=== PATIENT | female | born 1960 | race Caucasian/White ===

== ENCOUNTER 2022-08-28 11:30 | Outpatient (RCR) | payer OTHER, SELFPAY ==
[2022-07-03 16:32] LABS: Hemoglobin* 6.9 gm/dL (12.0-16.0)
[2022-07-04 11:45] VITALS: BP 135/82; PULSE 91; RESP 16; TEMP 36.4; O2SAT 98
[2022-07-04 12:27] VITALS: BP 135/82; PULSE 91; RESP 16; TEMP 36.4; O2SAT 98
[2022-07-04 12:44] VITALS: BP 128/87; PULSE 76; RESP 16; TEMP 36.8; O2SAT 100
[2022-07-04 13:29] VITALS: BP 132/81; PULSE 78; RESP 16; TEMP 37.1; O2SAT 100
[2022-07-04 14:29] VITALS: BP 132/76; PULSE 72; RESP 16; TEMP 37.2; O2SAT 99
[2022-07-17 16:46] LABS: Basophils Percent Auto 2.9 % (0.0-3.0); Hematocrit 22.6 % (33.0-51.0); Immature Granulocytes Pct Auto 3.4 %; Mean Corpuscular HGB Conc 30 gm/dL (32-36); Mean Corpuscular Hemoglobin 25 pg (26-34); Mean Corpuscular Volume 82 fL (80-100); Monocytes Percent Auto 9.1 % (0.0-11.0); Neutrophils Percent Auto 4.6 % (42.0-72.0); Platelet Count* 283 K/uL (140-440); RDW Coefficient of Variation % 28.6 % (11.5-15.5); Red Blood Count 2.77 m/uL (4.00-5.20)
[2022-07-17 17:00] LABS: Hemoglobin* 6.8 gm/dL (12.0-16.0); Slide Review Reflex No; White Blood Count* 1.75 K/uL (4.50-11.00)
[2022-07-18] VITALS (7 sets, daily range): BP systolic 109–137; BP diastolic 70–79; PULSE 61–71; RESP 16–20; TEMP 36.2–37.1; O2SAT 94–97
[2022-07-25] VITALS (7 sets, daily range): BP systolic 113–129; BP diastolic 64–89; PULSE 75–88; RESP 16–18; TEMP 36.5–36.9; O2SAT 99–100
[2022-07-25] MEDS: 0.9 % SODIUM CHLORIDE 250 ml IV (11:16)
--- NOTE | 2022-07-29 15:59 | ONC.NURNOTE ---
Addendum entered by Bebe Mariee RN 07/29/22 16:17: Pt having transfusion 08/07 instead of usual Fridays d/t [place]. Original Note: Following appts made in collaboration with [facility] and patient's schedule: 07/31 Labs ~1045 at [facility] and then T&C at [facility] 08/01 1000 [facility] for likely transfusion of PRBC and PLT *Prior to this transfusion, draw a Type instead of Type & Cross for 08/04 0815 Platelet transfusion 08/04 0815 Platelet transfusion prior to Port Plct @ 1300 with arrival time in [place] as 1200 08/06 Labs at [facility] and then 0930 T&C at [facility] 08/07 1030 likely transfusion of PRBC and PLT [facility] says ok if patient wants to have labs and T&C drawn all together here instead of labs and [facility], then T&C here. [facility] to review with patient and let us know if any changes.
[2022-07-31 12:23] LABS: Hematocrit 21.1 % (33.0-51.0); Mean Corpuscular HGB Conc 33 gm/dL (32-36); Mean Corpuscular Hemoglobin 26 pg (26-34); Mean Corpuscular Volume 78 fL (80-100); Red Blood Count 2.71 m/uL (4.00-5.20)
[2022-07-31 12:55] LABS: White Blood Count* 1.54 K/uL (4.50-11.00)
[2022-07-31 13:04] LABS: Corrected White Blood Count 1.31 K/UL (4.50-11.00)
[2022-07-31 13:05] LABS: Hemoglobin* 6.9 gm/dL (12.0-16.0); Platelet Count* 24 K/uL (140-440); Slide Review Reflex Yes
[2022-07-31 13:06] LABS: Slide Review Acceptable Review (Acceptable)
--- NOTE | 2022-07-31 15:44 | ONC.NURNOTE ---
Labs faxed to primary
[2022-08-01 10:08] VITALS: BP 144/82; PULSE 102; RESP 16; TEMP 36.4; O2SAT 98
[2022-08-01 10:59] VITALS: BP 144/82; PULSE 102; RESP 16; TEMP 36.4; O2SAT 98
[2022-08-01 11:17] VITALS: BP 115/76; PULSE 80; RESP 16; TEMP 36.7
[2022-08-01 12:02] VITALS: BP 114/79; PULSE 80; RESP 16; TEMP 36.3; O2SAT 100
[2022-08-01 13:15] VITALS: BP 118/75; PULSE 77; RESP 18; TEMP 37.4; O2SAT 98
[2022-08-01 14:07] VITALS: BP 124/83; PULSE 76; RESP 16; TEMP 36.8; O2SAT 97
[2022-08-04 08:25] VITALS: BP 126/78; PULSE 76; RESP 16; TEMP 36.3; O2SAT 97
[2022-08-04 08:48] VITALS: BP 126/78; PULSE 86; RESP 16; TEMP 36.7; O2SAT 97
[2022-08-04 09:06] VITALS: BP 114/75; PULSE 84; RESP 16; TEMP 36.4; O2SAT 97
[2022-08-04 10:23] VITALS: BP 113/71; PULSE 76; RESP 16; TEMP 36.2; O2SAT 96
[2022-08-04 10:40] LABS: Hematocrit 21.3 % (33.0-51.0); Lymphocytes Percent Auto 97.5 % (20-44); Mean Corpuscular HGB Conc 33 gm/dL (32-36); Mean Corpuscular Hemoglobin 26 pg (26-34); Mean Corpuscular Volume 80 fL (80-100); Monocytes Percent Auto 1.3 % (0.0-11.0); Neutrophils Percent Auto 1.2 % (42.0-72.0); RDW Coefficient of Variation % 21.6 % (11.5-15.5); Red Blood Count 2.68 m/uL (4.00-5.20)
[2022-08-04 10:56] LABS: Platelet Count* 38 K/uL (140-440)
[2022-08-04 11:28] LABS: Albumin* 3.7 g/dL (3.3-5.0); Chloride* 106 mmol/L (96-114)
[2022-08-04 11:29] LABS: Potassium* 4.2 mmol/L (3.6-5.1); Sodium* 139 mmol/L (135-149)
[2022-08-04 11:31] LABS: Alkaline Phosphatase* 47 U/L (40-150); Aspartate Amino Transferase* 18 U/L (12-35); Bilirubin Total* 0.8 mg/dL (0.1-1.5); Carbon Dioxide* 27 mmol/L (20-32); Creatinine* 0.6 mg/dL (0.5-1.5); Est. Creatinine Clearance* 44.95; Estimated Glomerular Filt Rate 100 ml/min; Total Protein* 6.3 g/dL (6.0-8.3)
[2022-08-04 11:32] LABS: Alanine Aminotransferase* 18 U/L (4-35); Blood Urea Nitrogen* 16 mg/dL (7-30); Calcium* 8.3 mg/dL (8.4-10.6); Glucose* 97 mg/dL (60-115); Uric Acid* 2.9 mg/dL (2.2-8.4)
[2022-08-05 08:53] LABS: Slide Review Reflex Yes
[2022-08-05 08:54] LABS: Slide Review Acceptable Review (Acceptable)
[2022-08-06 09:57] LABS: Basophils Percent Auto 1.1 % (0.0-3.0); Hematocrit 21.1 % (33.0-51.0); Lymphocytes Percent Auto 96.6 % (20-44); Mean Corpuscular HGB Conc 33 gm/dL (32-36); Mean Corpuscular Hemoglobin 26 pg (26-34); Mean Corpuscular Volume 80 fL (80-100); Monocytes Percent Auto 2.3 % (0.0-11.0); Platelet Count* 59 K/uL (140-440); RDW Coefficient of Variation % 21.3 % (11.5-15.5); Red Blood Count 2.65 m/uL (4.00-5.20)
[2022-08-06 10:00] LABS: Hemoglobin* 6.9 gm/dL (12.0-16.0); White Blood Count* 0.87 K/uL (4.50-11.00)
[2022-08-06 10:01] LABS: Slide Review Reflex Yes
[2022-08-06 10:30] LABS: Slide Review Acceptable Review (Acceptable)
--- NOTE | 2022-08-06 15:18 | ONC.NURNOTE ---
steristrips came off with the dressing removal to access. incision closed. no reddness or drainage. using sterile technique put new steristrips on. teaching and time with Emmanuelle . her first time accessing her port and drawing blood for type and crossmatch. she receives blood tomorrow. labs faxed to her md. pam well. port padded and left in for tomorrow.
[2022-08-07 11:16] VITALS: BP 107/71; PULSE 88; RESP 18; TEMP 36.5; O2SAT 98
[2022-08-07 11:33] VITALS: BP 107/71; PULSE 68; RESP 16; TEMP 36.4; O2SAT 96
[2022-08-07 12:18] VITALS: BP 97/65; PULSE 76; RESP 16; TEMP 36.8; O2SAT 96
[2022-08-07 13:25] VITALS: BP 111/70; PULSE 81; RESP 16; TEMP 37.1; O2SAT 96
[2022-08-07 14:13] VITALS: BP 122/74; PULSE 96; RESP 16; TEMP 36.9; O2SAT 96
[2022-08-13 13:17] LABS: Basophils Percent Auto 3.3 % (0.0-3.0); Hematocrit 22.7 % (33.0-51.0); Mean Corpuscular HGB Conc 32 gm/dL (32-36); Mean Corpuscular Hemoglobin 27 pg (26-34); Mean Corpuscular Volume 84 fL (80-100); Monocytes Percent Auto 3.3 % (0.0-11.0); Neutrophils Percent Auto 3.4 % (42.0-72.0); Platelet Count* 401 K/uL (140-440); RDW Coefficient of Variation % 19.8 % (11.5-15.5); Red Blood Count 2.72 m/uL (4.00-5.20)
[2022-08-13] MEDS: HEPARIN 500 UNIT/5 ML SYRINGE IVF (13:19)
[2022-08-13] MEDS: SODIUM CHLORIDE 0.9 % (FLUSH) 10 ML SYRINGE IVF (13:20)
[2022-08-13 13:32] LABS: Hemoglobin* 7.3 gm/dL (12.0-16.0); Slide Review Reflex No
[2022-08-14 13:14] VITALS: BP 124/72; PULSE 78; RESP 16; TEMP 35.9
[2022-08-14 13:32] VITALS: BP 124/72; RESP 16; TEMP 36.6; O2SAT 96
[2022-08-14 13:49] VITALS: BP 115/74; PULSE 78; RESP 16; TEMP 36.2; O2SAT 96
[2022-08-14 13:51] VITALS: BP 110/68; PULSE 73; RESP 16; TEMP 35.7; O2SAT 96
[2022-08-14 15:40] VITALS: BP 107/67; RESP 16; TEMP 36.4; O2SAT 96
[2022-08-14 16:10] VITALS: BP 119/74; BP 139/77; PULSE 72; PULSE 81; RESP 16; TEMP 36.2; TEMP 36.9; O2SAT 96; O2SAT 99
[2022-08-20 11:25] LABS: Hematocrit 22.8 % (33.0-51.0); Lymphocytes Percent Auto 95.1 % (20-44); Mean Corpuscular HGB Conc 33 gm/dL (32-36); Mean Corpuscular Hemoglobin 27 pg (26-34); Mean Corpuscular Volume 84 fL (80-100); Neutrophils Percent Auto 4.9 % (42.0-72.0); Platelet Count* 217 K/uL (140-440); RDW Coefficient of Variation % 18.3 % (11.5-15.5); Red Blood Count 2.73 m/uL (4.00-5.20)
[2022-08-20 11:52] LABS: Slide Review Reflex Yes
[2022-08-20 11:53] LABS: Hemoglobin* 7.4 gm/dL (12.0-16.0); White Blood Count* 0.82 K/uL (4.50-11.00)
[2022-08-20 13:01] LABS: Slide Review Acceptable Review (Acceptable)
[2022-08-21 10:18] VITALS: BP 139/77; PULSE 90; RESP 16; TEMP 36.7; O2SAT 99
[2022-08-21 11:03] VITALS: BP 139/77; PULSE 90; RESP 16; TEMP 36.6; O2SAT 99
[2022-08-21 11:23] VITALS: BP 123/70; PULSE 76; RESP 16; TEMP 36.8; O2SAT 99
[2022-08-21 12:08] VITALS: BP 117/68; PULSE 74; RESP 16; TEMP 37.2; O2SAT 100
[2022-08-21 13:08] VITALS: BP 129/79; RESP 16; TEMP 37.3; O2SAT 98
[2022-08-21] MEDS: SODIUM CHLORIDE 0.9 % (FLUSH) 10 ML SYRINGE IVF (13:49)
[2022-08-21] MEDS: HEPARIN 500 UNIT/5 ML SYRINGE IVF (13:49)
--- NOTE | 2022-08-26 11:29 | ONC.NURNOTE ---
Received call from Irene with Dr. Villafana at [facility] notifying us that pt's labs today are Hgb 8.3 and Plt 192. No transfusion indicated. Pt's next labs to be drawn Thurs 08/28 at [facility]; Irene will notify us if pt wants labs drawn here in anticipation of transfusion Fri 08/29.
[2022-08-28 11:59] LABS: Hematocrit 26.5 % (33.0-51.0); Hemoglobin* 8.5 gm/dL (12.0-16.0); Lymphocytes Percent Auto 96.8 % (20-44); Mean Corpuscular HGB Conc 32 gm/dL (32-36); Mean Corpuscular Hemoglobin 28 pg (26-34); Mean Corpuscular Volume 88 fL (80-100); Monocytes Percent Auto 1.6 % (0.0-11.0); Neutrophils Percent Auto 1.6 % (42.0-72.0); Platelet Count* 280 K/uL (140-440); RDW Coefficient of Variation % 17.5 % (11.5-15.5)
[2022-08-28 12:05] LABS: White Blood Count* 0.63 K/uL (4.50-11.00)
[2022-08-28 12:06] LABS: Slide Review Reflex No
--- NOTE | 2022-08-28 15:55 | ONC.NURNOTE ---
Labs faxed to [facility] and called to pt; no transfusion indicated for Hgb 8.5.
== END 2022-12-30 23:59 | disposition home or self-care (01) ==
LOC: CCIC 11:30
PROVIDERS: PCP Clinical Nurse Specialist; Referring Provider Clinical Nurse Specialist; Visit Provider Clinical Nurse Specialist
DX: D46.9 Myelodysplastic syndrome, unspecified (principal)
CPT/HCPCS: 36415; 36430; 36591; 36592; 80053; 84550; 85018; 85025; 86850; 86900; 86901; 86922; J1642; J7050; P9016; P9073